=== PATIENT | female | born 1980 | race Caucasian/White ===

== ENCOUNTER 2019-06-25 06:52 | Day surgery (SDC) | payer MEDICAID ==
[2019-06-23 11:51] LABS: BASOPHILS % (AUTO) 0.3 % (0-1); EOSINOPHILS # (AUTO) 0.1 X10'3 (0-0.9); EOSINOPHILS % (AUTO) 1.6 % (0-6); LYMPHOCYTES # (AUTO) 1.8 X10'3 (1.1-4.8); LYMPHOCYTES % (AUTO) 30.2 % (21-51); MEAN CORPUSCULAR HEMOGLOBIN 32.3 PG (27.0-31.0); MEAN CORPUSCULAR HGB CONC 33.9 g/dL (33.0-36.5); MEAN CORPUSCULAR VOLUME 95.1 FL (78-98); MEAN PLATELET VOLUME 8.6 FL (7.4-10.4); MONOCYTES # (AUTO) 0.5 X10'3 (0-0.9); NEUTROPHILS # (AUTO) 3.4 X10'3 (1.8-7.7); NEUTROPHILS % (AUTO) 58.9 % (42-75); PRE OP HEMATOCRIT 39.5 % (35.0-45.0); PRE OP HEMOGLOBIN 13.4 g/dL (12.0-16.0); PRE OP PLATELET COUNT 189 X10'3 (140-440); RED BLOOD COUNT 4.16 X10'6 (4.20-5.60); RED CELL DISTRIBUTION WIDTH 13.1 % (11.5-14.5)
[2019-06-23 11:54] LABS: HCG SERUM QL NEGATIVE
[2019-06-23 11:55] LABS: ALBUMIN 4.3 G/DL (3.4-5.0); ALBUMIN/GLOBULIN RATIO 1.2 (1.1-1.5); ALKALINE PHOSPHATASE 43 IU/L (46-116); BLOOD UREA NITROGEN 9 MG/DL (7-18); BUN/CREATININE RATIO 9.4 (6.6-38.0); CHLORIDE 103 MMOL/L (99-107); CREATININE 0.96 MG/DL (0.40-0.90); PRE OP ALT 28 U/L (30-65); PRE OP ANION GAP 6 (8-16); PRE OP AST 23 U/L (10-37); PRE OP BILIRUB, TOTAL 1.5 MG/DL (0.0-1.0); PRE OP GLUCOSE 106 MG/DL (70-104); PRE OP POTASSIUM 4.4 MMOL/L (3.4-5.1); PRE OP SODIUM 140 MMOL/L (135-145); TOTAL CARBON DIOXIDE 30.9 MMOL/L (24-32); TOTAL PROTEIN 7.8 G/DL (6.4-8.2); eGFR 64 ML/MIN
[~2019-06-25] VITALS: Ht 172.7 cm; Wt 80.1 kg
[2019-06-25] VITALS (11 sets, daily range): BP systolic 127–152; BP diastolic 74–102
[~2019-06-25 06:52] MED LIST: BUPR300T53 PO; ESCI5TAB PO; famotidine 20mg tablet PO ONE; ringers solution, lacted 1,000 ML IV SCH
[2019-06-25] MEDS ORDERED: ringers solution, lacted 1,000 ML IV SCH (08:03)
[2019-06-25] MEDS ORDERED: morphine 2 MG/ML inj. syringe IV PRN (08:05)
[2019-06-25] MEDS ORDERED: ondansetron/PF 4mg/2ml inj IV PRN (08:05)
[2019-06-25] MEDS ORDERED: morphine 4 MG/ML inj SYRINge IV PRN (08:05)
[2019-06-25] MEDS ORDERED: meperidine/PF 25mg/ml syringe IV PRN ×3 (08:05)
[2019-06-25] MEDS ORDERED: proCHLORperazine 10 MG/2 ml inj IV PRN (08:05)
[2019-06-25] MEDS ORDERED: BUPIVAcaine/PF 2.5 mg/ml (0.25%) 30ml vial ONE (08:46)
[2019-06-25] MEDS ORDERED: sevoflurane 250ml liquid IH ONE (08:55)
[2019-06-25] MEDS ORDERED: fentaNYL/PF 50MCG/1 ML 2ML syringe ONE (08:59)
[2019-06-25] MEDS ORDERED: midazolam 2 mg/2 ml injection ONE (09:00)
[2019-06-25] MEDS ORDERED: propofol inj 20 ML IV ONE (09:02)
[2019-06-25] MEDS ORDERED: LIDOcaine 2% (20mg/ml) 5ml vial ONE (09:02)
[2019-06-25] MEDS ORDERED: rocuronium 10mg/ml inj IV ONE (09:02)
[2019-06-25] MEDS ORDERED: ondansetron/PF 4mg/2ml inj ONE (09:44)
[2019-06-25] MEDS ORDERED: neostigmine methylsulfate 1 MG/ML 10ml vial ONE (09:44)
[2019-06-25] MEDS ORDERED: glycopyrrolate 0.2mg/ml inj ONE (09:44)
[2019-06-25] MEDS ORDERED: dexamethasone sod phosphate 4mg/ml inj. ONE (09:44)
--- NOTE | 2019-06-25 10:03 | NUR ---
TRANSFERRED VIA [facility] WITH DR GRUBER ANESTHESIOLOGIST, REPORT GIVEN.VSS, NO C/O PAIN 20 GUAGE PIV L AC RUNNING LR AT 100 ML/HR. DRESSINGS SRINATH, CROWE, SKIN PINK AND WARM, ABD SOFT. RESTING COMFORTABLY. Addendum: 06/25/19 at 1021 by Nohelia Ramirez RN Amended: Links added.
[2019-06-25] MEDS ORDERED: oxyCODONE/APAP 5-325mg tablet PO ONE (10:05)
--- NOTE | 2019-06-25 11:20 | NUR ---
PT STATES PAIN LEVEL AT 2 AND DECLINED ANY PAIN MEDS, VSS, SKIN PINK AND WARM, DRESSINGS CDI, VOIDED 300 ML, 20 GUAGE PIV L AC DC/D CATHETER TIP INTACT. D/C CRITERIA MET, D/C INSTRUCTIONS GIVEN, VERBALIZED UNDERSTANDING. TRANSFERRED VIA WHEELCHAIR TO SIG OTHER IN PRIVATE VEHICLE TO HOME.
== END 2019-06-25 11:23 | disposition home or self-care (01) ==
LOC: PAS 06:52
PROVIDERS: ATTEND Obstetrics & Gynecology
DX: N92.0 Excessive and frequent menstruation with regular cycle (principal); N83.8 Other noninflammatory disorders of ovary, fallopian tube and broad ligament; Z98.890 Other specified postprocedural states; Z79.899 Other long term (current) drug therapy
CPT/HCPCS: 36415; 58563; 58661; 80053; 82948; 84703; 85025; 86885; 86900; 86901; A4264; J1100; J2001; J2250; J2405; J2704; J2710; J3010; J3490; J7030; J7120; A4355; A4618; A6250